=== PATIENT | male | born 1970 | race Caucasian/White ===

== ENCOUNTER 2016-07-21 10:30 | Emergency (ER) | payer OTHER | END 2016-07-21 13:46 | disposition home or self-care (01) | LOC: ER1 10:30 | DX: S01.81XA Laceration without foreign body of other part of head, initial encounter (principal); S00.93XA Contusion of unspecified part of head, initial encounter; F17.210 Nicotine dependence, cigarettes, uncomplicated; I72.9 Aneurysm of unspecified site; C34.90 Malignant neoplasm of unspecified part of unspecified bronchus or lung; Y08.02XA Assault by strike by baseball bat, initial encounter | CPT/HCPCS: 12002; 70450; 71020; 72125; 90714; 99283 ==

== ENCOUNTER → 2016-10-07 | Outpatient (CLI) | payer OTHER | LOC: KOH-I 12:50 | DX: J40 Bronchitis, not specified as acute or chronic (principal); R91.8 Other nonspecific abnormal finding of lung field | CPT/HCPCS: 71020 ==

== ENCOUNTER → 2020-08-02 | Outpatient (CLI) | payer OTHER ==
[~2020-08-02] MED LIST: ALPRAZOLAM0.5 MG PO; ASPIRIN CHEWABL81 MG PO; AUGMENTIN 875-1 EACH PO; BACTROBAN OINT22 GM EXT; DOXYCYCLINE HY100 MG PO; IBU800 MG PO; INDOCIN 50 MG C50 MG PO; KEPPRA500 MG PO; MIRTAZAPINE45 MG PO; NEURONTIN 300300 MG PO; NORCO 7.5-3251 EACH PO; OMNICEF 300 MG300 MG PO; OXYCONTIN10 MG PO; PAXIL30 MG PO; PENVEE K 250 M250 MG PO; REMERON15 MG PO; ROBAXIN500 MG PO; VALPROIC ACID PO; XANAX1 MG PO
== END ==
LOC: KOH-I 15:00
DX: H53.2 Diplopia (principal); R51.9 Headache, unspecified
CPT/HCPCS: 70450

== ENCOUNTER 2020-09-17 11:48 | Observation (INO) | payer OTHER ==
[~2020-09-17] VITALS: Ht 177.8 cm; Wt 74.5 kg
[~2020-09-17 11:48] MED LIST changes: -INDOCIN 50 MG C50 MG PO; -MIRTAZAPINE45 MG PO; -OMNICEF 300 MG300 MG PO
[2020-09-17 12:29] LABS: HEMOGLOBIN 13.4 gm/dl (14.0-17.5); RED BLOOD COUNT 4.43 M/UL (4.20-5.50); WHITE BLOOD COUNT 11.3 K/UL (4.5-11.0)
[2020-09-17 12:52] LABS: BUN/CREATININE RATIO 13 (0-10)
[2020-09-18 02:30] LABS: HEMOGLOBIN 11.7 gm/dl (14.0-17.5)
[2020-09-18 02:32] LABS: RED BLOOD COUNT 3.91 M/UL (4.20-5.50); WHITE BLOOD COUNT 7.6 K/UL (4.5-11.0)
[2020-09-18 02:49] LABS: BUN/CREATININE RATIO 15 (0-10)
[2020-09-18] MEDS ORDERED: MIRTAZAPINE45 MG PO (07:00)
[2020-09-18] MEDS ORDERED: OMNICEF 300 MG300 MG PO (08:45)
[2020-09-18] MEDS ORDERED: INDOCIN 50 MG C50 MG PO (12:17)
== END 2020-09-18 13:50 | disposition home or self-care (01) ==
LOC: ER1 11:48 → CDU 17:11 → PROG CARE 18:35
PROVIDERS: Physician Assistant; Physician Assistant Medical; ADMIT Internal Medicine
DX: J18.9 Pneumonia, unspecified organism (principal); I31.3 Pericardial effusion (noninflammatory); J44.9 Chronic obstructive pulmonary disease, unspecified; G40.909 Epilepsy, unspecified, not intractable, without status epilepticus; Z87.891 Personal history of nicotine dependence; Z85.118 Personal history of other malignant neoplasm of bronchus and lung; Z86.79 Personal history of other diseases of the circulatory system; Z79.1 Long term (current) use of non-steroidal anti-inflammatories (NSAID); Z20.822 Contact with and (suspected) exposure to COVID-19
CPT/HCPCS: ECHO; 0240U; 71045; 80048; 80053; 80307; 81001; 82550; 82553; 83605; 83690; 83735; 83874; 84484; 85025; 85027; 85379; 87040; 87070; 87077; 87186; 87205; 93005; 93306; 96374; 96375; 96376; 99285; G0378; J0456; J0696; J1885; J7030; Q0177; Q9967

== ENCOUNTER → 2021-01-05 | Outpatient (CLI) | payer OTHER ==
[~2021-01-05] MED LIST changes: +INDOCIN 50 MG C50 MG PO; +MIRTAZAPINE45 MG PO; +OMNICEF 300 MG300 MG PO
== END ==
LOC: ECHO 10:31
DX: I31.3 Pericardial effusion (noninflammatory) (principal); I35.1 Nonrheumatic aortic (valve) insufficiency
CPT/HCPCS: ECHO; 93306

== ENCOUNTER 2022-01-09 21:06 | Emergency (ER) | payer OTHER ==
[2022-01-09 21:28] LABS: HEMOGLOBIN 12.5 gm/dl (14.0-17.5); RED BLOOD COUNT 4.02 M/UL (4.20-5.50); WHITE BLOOD COUNT 12.5 K/UL (4.5-11.0)
[2022-01-09 21:51] LABS: BUN/CREATININE RATIO 21 (0-10)
== END 2022-01-10 00:22 | disposition admitted as inpatient to this hospital (09) ==
LOC: ER1 21:06
PROVIDERS: Family Medicine
DX: F41.9 Anxiety disorder, unspecified (principal); R42 Dizziness and giddiness; F17.200 Nicotine dependence, unspecified, uncomplicated; Z99.81 Dependence on supplemental oxygen
CPT/HCPCS: 70450; 71045; 80053; 82550; 82553; 84484; 85025; 93005; 99284; G0480